=== PATIENT | female | born 2000 | race American Indian/Alaskan Native ===

== ENCOUNTER 2020-03-22 16:30 | Emergency (ER) | payer OTHER ==
[2020-03-22 17:56] VITALS: BP 111/68
--- NOTE | 2020-03-22 18:28 | XRay Report ---
LEFT FOOT 3 VIEWS INDICATION / CLINICAL INFORMATION: injury, possible dislocation COMPARISON: None available. FINDINGS: BONES / JOINT(S): Lateral dislocation of the fused mid/distal phalanx relative to the proximal phalan x at the fifth digit. Tiny density seen along the lateral aspect of the proximal phalanx distally. It is uncertain if this represents a soft tissue calcification/ossification or a small avulsion. SOFT TISSUES: No significant abnormality. ADDITIONAL FINDINGS: None. Signer Name: Kendall Stephenson MD Signed: 03/22/2020 6:27 PM Workstation Name: [id number]
--- NOTE | 2020-03-22 20:39 | XRay Report ---
LEFT FOOT ONE VIEW INDICATION / CLINICAL INFORMATION: post reduction COMPARISON: None available. FINDINGS: BONES / JOINT(S): Partial reduction at the proximal interphalangeal joint of the fifth digit with res idual lateral subluxation of the mid/distal phalangeal complex. Possible small avulsion remains. SOFT TISSUES: Overlying soft tissue swelling. ADDITIONAL FINDINGS: None. Signer Name: Kendall Stephenson MD Signed: 03/22/2020 8:38 PM Workstation Name: [id number]
--- NOTE | 2020-03-22 21:18 | Emergency Department Report ---
ED Lower Extremity HPI - General Chief Complaint: Extremity Injury, Lower Stated Complaint: TOE INJURY Time Seen by Provider: 03/22/20 17:52 Source: patient Mode of arrival: Wheelchair Limitations: No Limitations - History of Present Illness MD Complaint: foot injury -: Gradual Injury: Toes: Left Type of Injury: blunt (She is walking and running to the back of her daughter's foot striking her fifth toe resulting in pain swelling and deformity) Place: home Severity: mild, moderate Worsens With: movement, palpation Context: direct blow Associated Symptoms: swelling - Related Data Previous Rx's Medication Instructions Recorded Last Taken Type Acetaminophen/Codeine [Tylenol 1 tab PO Q6H PRN #15 tab 03/22/20 Unknown Rx /Codeine # 3 tab] Allergies Allergy/AdvReac Type Severity Reaction Status Date / Time No Known Allergies Allergy Unverified 03/22/20 17:52 ED Review of Systems ROS: Stated complaint: TOE INJURY Other details as noted in HPI Comment: All other systems reviewed and negative ED Past Medical Hx - Past Medical History Previous Medical History?: No - Medications Home Medications: Home Medications Medication Instructions Recorded Confirmed Last Taken Type Acetaminophen/Codeine [Tylenol 1 tab PO Q6H PRN #15 tab 03/22/20 Unknown Rx /Codeine # 3 tab] ED Physical Exam - General Limitations: No Limitations General appearance: alert, in no apparent distress - Head Head exam: Present: atraumatic, normocephalic - Eye Eye exam: Present: normal appearance, PERRL. Absent: scleral icterus, periorbital swelling Pupils: Present: normal accommodation - ENT ENT exam: Present: normal exam, mucous membranes moist. Absent: mucous membranes dry - Neck Neck exam: Present: normal inspection, full ROM. Absent: tenderness - Respiratory Respiratory exam: Present: normal lung sounds bilaterally. Absent: respiratory distress, wheezes, rales, chest wall tenderness, accessory muscle use, decreased breath sounds - Cardiovascular Cardiovascular Exam: Present: regular rate, normal rhythm. Absent: systolic murmur, diastolic murmur, rubs, gallop - GI/Abdominal GI/Abdominal exam: Present: soft, normal bowel sounds - Extremities Exam Extremities exam: Present: tenderness, normal capillary refill. Absent: calf tenderness - Expanded Lower Extremity Exam Left Foot/Toe exam: Present: tenderness, swelling, deformity - Back Exam Back exam: Present: normal inspection. Absent: CVA tenderness (R), CVA tenderness (L) - Neurological Exam Neurological exam: Present: alert, oriented X3, CN II-XII intact, normal gait. Absent: motor sensory deficit - Psychiatric Psychiatric exam: Present: normal affect, normal mood - Skin Skin exam: Present: warm, dry, intact, normal color. Absent: rash ED Course Vital Signs 03/22/20 17:55 Temperature 97.9 F Pulse Rate 89 Respiratory 16 Rate Blood Pressure 111/68 O2 Sat by Pulse 99 Oximetry - Orthopedic Joint Reduction Joint #1 Time Out Performed: Yes Side: left Joint Reduction Location: toe Analgesia: digital block Local Anesthetic Used: Lidocaine 2% Amount of Anesthetic Used (mls): 4 Shoulder Technique Used (if applicable): traction/counter-traction Post-Reduction Neuro Exam: intact Post-Reduction Vascular Exam: intact Post Reduction X-Ray Obtained: Yes Post Reduction X-Ray Results: other (Position significantly improved however still and lateral lateral deviation which can only be maintained with constant manipulation. Appears to have some ligamentous trauma) Splint Applied: Yes Patient Tolerated Procedure: well Critical care attestation.: If time is entered above; I have spent that time in minutes in the direct care of this critically ill patient, excluding procedure time. ED Disposition Clinical Impression: Dislocation of toe of left foot Disposition: DC-01 TO HOME OR SELFCARE Is pt being admited?: No Does the pt Need Aspirin: No Condition: Stable Instructions: Toe Dislocation, How to Use Cold Therapy Prescriptions: Acetaminophen/Codeine [Tylenol /Codeine # 3 tab] 1 tab PO Q6H PRN #15 tab PRN Reason: Pain , Severe (7-10) Referrals: [facility] [Other] - 3-5 Days
== END 2020-03-22 21:50 | disposition home or self-care (01) ==
LOC: ED 16:30
DX: S93.105A Unspecified dislocation of left toe(s), initial encounter (principal); Z79.899 Other long term (current) drug therapy; X58.XXXA Exposure to other specified factors, initial encounter; Y93.89 Activity, other specified; Y92.009 Unspecified place in unspecified non-institutional (private) residence as the place of occurrence of the external cause; Y99.8 Other external cause status